=== PATIENT | female | born 1960 | race Caucasian/White ===

== ENCOUNTER → 2016-12-30 | Outpatient (CLI) | payer MEDICARE, OTHER ==
[2016-12-30 11:28] LABS: Basophils % (A) 0 %; CH 30.5; CHCM 32.3; Eosinophils # (A) 0.1 k/uL (0-0.7); Eosinophils % (A) 2 %; HCT 36.2 % (34.0-46.0); HDW 2.14; HGB 12.5 gm/dL (11.4-16.0); Luc # (Auto) 0.17; Luc % (Auto) 3; Lymphocytes # (A) 0.2 k/uL (1.0-4.8); Lymphocytes % (A) 4 %; MCH 32.7 pg (25.0-35.0); MCHC 34.6 g/dL (31.0-37.0); MCV 94.6 fL (80.0-100.0); Mean Platelet Volume 7.3; Monocytes # (A) 0.4 k/uL (0-1.0); Monocytes % (A) 8 %; Neutrophils # (A) 4.2 k/uL (1.3-7.7); Neutrophils % (A) 83 %; RBC 3.83 m/uL (3.80-5.40); RDW 12.9 % (11.5-15.5); WBC 5.1 k/uL (3.8-10.6); WBC (Perox) 5.47
[2016-12-30 12:13] LABS: Hemoglobin A1C 5.2 % (4.2-6.1)
[2016-12-30 12:23] LABS: ALT 34 U/L (9-52); AST 22 U/L (14-36); Alkaline Phosphatase 83 U/L (38-126); Anion Gap 10 mmol/L; Blood Urea Nitrogen 14 mg/dL (7-17); Calcium 9.1 mg/dL (8.4-10.2); Carbon Dioxide 28 mmol/L (22-30); Chloride 104 mmol/L (98-107); Glucose 86 mg/dL (74-99); Iron 99 ug/dL (37-170); Non-African American GFR(MDRD) >60 (>60 ml/min/1.73 sqM); Potassium 4.7 mmol/L (3.5-5.1); Sodium 142 mmol/L (137-145); Total Bilirubin 0.5 mg/dL (0.2-1.3); Total Protein 6.2 g/dL (6.3-8.2)
[2016-12-30 12:39] LABS: % Iron Saturation 29.4 % (20-50); Total Iron Binding Capacity 337 ug/dL (265-497)
[2016-12-30 13:14] LABS: Vitamin B12 611 pg/mL (239-931)
== END | disposition home or self-care (01) ==
LOC: LABWHC1 11:04
PROVIDERS: ATTEND Psychiatry & Neurology Neurology
DX: G35 Multiple sclerosis (principal); Z79.899 Other long term (current) drug therapy
CPT/HCPCS: 36415; 80053; 82306; 82607; 82728; 83036; 83540; 83550; 84466; 85025

== ENCOUNTER → 2017-06-24 | Outpatient (CLI) | payer MEDICARE, OTHER ==
--- NOTE | 2017-06-24 19:34 | MR ---
EXAMINATION TYPE: MR brain wo/w DATE OF EXAM: 06/24/2017 COMPARISON: 03/20/2016 HISTORY: MS Follow up, Previous On Pacs TECHNIQUE: Multiplanar, multisequence images of the brain and brainstem is performed without and with IV contras t, utilizing 6.5 mL intravenous Gadavist . FINDINGS: Diffusion weighted images demonstrate no evidence of a recent infarct or other diffusion ab normality. There is no extra-axial fluid collection or significant white matter signal abnormality. The ventricular system and cisternal spaces are normal in size and appearance. The brain volume is age appropriate. Midline structures demonstrate normal morphology. The craniocervical junction appears within normal limits. Post contrast images demonstrate no abnormal enhancement. The dural venous sinuses appear pa tent. Changes of mild chronic sinusitis. Abnormal signal within the basal ganglia is stable and most typica l remote lacunar infarction. No posterior the right cerebellum there is a 2 mm rounded area of enhanc ement not definitively seen on the previous exam WHITE MATTER: 1. Number of lesions-12 on the current exam and approximately 10 on the previous exam. 2. New lesions-there are approximately 2 new lesions both measuring less than 5 cm involving the left frontal and left parietal lobe. 3. Enhancing lesions: None 4. Callosal lesions-none 5. Lesions perpendicular to the ventricular system: None 6. Largest lesion: Stable 8 mm lesion hernandez radiata on the right unchanged from the prior exam. IMPRESSION: 1. Persistent nonspecific white matter lesions totaling a number of 12 on the current exam and 10 on the previous exam. Both new lesions measure less than 5 mm and appear within the left frontal and par ietal lobes respectively. 2. No enhancing lesions. All remaining lesions stable in size, location and morphology. 3. There is a new 2 mm area of rounded enhancement posterior to the right cerebellar hemisphere infer iorly. This is too small to characterize could represent a tiny meningioma. This could be followed on a 6-12 month basis given the diminutive size. EXAMINATION TYPE: MR cspine wo/w DATE OF EXAM: 06/24/2017 COMPARISON: 12/12/2013 HISTORY: MS Follow up, Previous On Pacs TECHNIQUE: T1 sagittal and coronal, T2 sagittal, and gradient echo axial views of the cervical spine are submitted. FINDINGS: The cranial cervical junction is preserved. There is no abnormal signal seen within the sp inal cord or paraspinal soft tissues. Less than 5 mm left thyroid nodule too small to characterize. At C2-3 there is no disc herniation, canal stenosis, or foraminal encroachment. At C3-4 there is no disc herniation or canal stenosis. Very minimal central disc bulging. Neural fora norm widely patent. At C4-5 there is annular tear and broad-based left paracentral disc bulge or small protrusion. Mild e ffacement of thecal sac. No canal stenosis or foraminal encroachment. Findings stable. At C5-6 there is moderate degenerative disc disease. There is a right paracentral and central broad-b ased disc herniation with moderate effacement of thecal sac and mild AP canal stenosis. Uncovertebral joint hypertrophy noted with minimal left-sided foraminal encroachment. Mild progression relative to the previous exam. At C6-7 there is degenerative disc disease but no canal stenosis or foraminal encroachment. At C7-T1 there is no evidence of disc herniation, canal stenosis, or foraminal encroachment. IMPRESSION: 1. No abnormal signal in the spinal cord. 2. Multilevel degenerative disc disease with severe changes at C5-C6. At C5-C6 there is mild progress ion of a right paracentral and central broad-based disc herniation with moderate effacement of thecal sac and mild AP canal stenosis. No spinal cord contact, however, there is mass effect upon the spina l cord secondary to thecal sac compression. 3. Annular tear and broad-based disc bulge or small protrusion C4-C5 greater paracentrally the left i s stable.
== END | disposition home or self-care (01) ==
LOC: RADMRIMAIN 16:46
PROVIDERS: ATTEND Psychiatry & Neurology Pain Medicine
DX: M48.02 Spinal stenosis, cervical region (principal); M50.222 Other cervical disc displacement at C5-C6 level; M50.322 Other cervical disc degeneration at C5-C6 level; G35 Multiple sclerosis; G93.89 Other specified disorders of brain; R90.82 White matter disease, unspecified
CPT/HCPCS: 70553; 72156; A9581

== ENCOUNTER → 2018-01-28 | Outpatient (CLI) | payer MEDICARE, OTHER ==
--- NOTE | 2018-01-28 10:53 | MR ---
EXAMINATION TYPE: MR brain wo/w con DATE OF EXAM: 01/28/2018 COMPARISON: 06/24/2017 HISTORY: Multiple sclerosis TECHNIQUE: Multiplanar, multisequence images of the brain and brainstem is performed without and with IV contras t, utilizing 6 mL intravenous Gadavist . FINDINGS: Diffusion weighted images demonstrate no evidence of a recent infarct or other diffusion ab normality. There is no extra-axial fluid collection or significant white matter signal abnormality. The ventricular system and cisternal spaces are normal in size and appearance. The brain volume is age appropriate. Midline structures demonstrate normal morphology. The craniocervical junction appears within normal limits. Post contrast images demonstrate no abnormal enhancement. The dural venous sinuses appear pa tent. The visualized sinuses are clear and the globes are intact. Stable tiny area of enhancement posterior to the right cerebellum could represent tiny meningioma wit h no significant mass effect. WHITE MATTER: 1. Number of lesions-12 on the current exam and approximately 10 on the previous exam. 2. New lesions-there are approximately 2 new lesions both measuring less than 5 cm involving the left frontal and left parietal lobe. 3. Enhancing lesions: None 4. Callosal lesions-none 5. Lesions perpendicular to the ventricular system: None 6. Largest lesion: Stable 8 mm lesion hernandez radiata on the right unchanged from the prior exam. IMPRESSION: 1. Stable nonspecific white matter changes. There is no interval change in size, morphology or number of lesions relative the previous exam. No enhancing lesions. Correlate clinically.
== END | disposition home or self-care (01) ==
LOC: RADMRIMAIN 09:13
PROVIDERS: ATTEND Psychiatry & Neurology Neurology
DX: G35 Multiple sclerosis (principal)
CPT/HCPCS: 70553

== ENCOUNTER → 2018-06-02 | Outpatient (CLI) | payer MEDICARE | END | disposition home or self-care (01) | LOC: LABWHC1 12:39 | PROVIDERS: ATTEND Psychiatry & Neurology Pain Medicine | DX: G35 Multiple sclerosis (principal); Z51.81 Encounter for therapeutic drug level monitoring | CPT/HCPCS: 36415; 82565; 84520 ==

== ENCOUNTER → 2018-11-05 | Outpatient (CLI) | payer MEDICARE ==
[2018-11-05 10:16] LABS: Basophils % (A) 1 %; Eosinophils # (A) 0.1 k/uL (0-0.7); Eosinophils % (A) 3 %; HCT 36.3 % (34.0-46.0); HGB 11.9 gm/dL (11.4-16.0); Lymphocytes # (A) 0.7 k/uL (1.0-4.8); Lymphocytes % (A) 14 %; MCHC 32.8 g/dL (31.0-37.0); MCV 91.3 fL (80.0-100.0); Mean Platelet Volume 8.6; Monocytes # (A) 0.3 k/uL (0-1.0); Monocytes % (A) 6 %; Neutrophils # (A) 3.5 k/uL (1.3-7.7); Neutrophils % (A) 75 %; Platelet Count 268 k/uL (150-450); RBC 3.98 m/uL (3.80-5.40); RDW 13.3 % (11.5-15.5); WBC 4.7 k/uL (3.8-10.6)
[2018-11-05 16:22] LABS: Albumin 4.3 g/dL (3.80-4.90); Albumin/Globulin Ratio 2.87 (1.60-3.17); Anion Gap 7.2 mmol/L (4.00-12.00); Calcium 8.9 mg/dL (8.7-10.3); Carbon Dioxide 26.8 mmol/L (21.6-31.8); Globulin 1.5 g/dL (1.6-3.3); Magnesium 1.9 mg/dL (1.5-2.4); Potassium 4.9 mmol/L (3.5-5.5); Total Bilirubin 0.2 mg/dL (0.3-1.2); Total Protein 5.8 g/dL (6.2-8.2)
== END ==
LOC: LABWHC1 08:39
PROVIDERS: ATTEND Psychiatry & Neurology Pain Medicine
DX: G35 Multiple sclerosis (principal); Z51.81 Encounter for therapeutic drug level monitoring
CPT/HCPCS: 36415; 80053; 82306; 83735; 85025

== ENCOUNTER → 2019-04-12 | Outpatient (CLI) | payer MEDICARE, OTHER ==
[2019-04-12 10:10] VITALS: BP 115/70; PULSE 80; RESP 16; TEMP 98.5; BMI 19.7
--- NOTE | 2019-04-12 11:16 | P.HPOB ---
History of Present Illness H&P Date: 04/12/19 Chief Complaint: The patient is here for her routine gynecologic exam and ma mmogram. This is a 58-year-old with an LMP of 1995. The patient is status post TAINA with LSO for benign reasons. The patient is without gynecologic complaints. Review of Systems The patient has lost 18 pounds over the last year. She states she has lost approximately 110 pounds since her bariatric surgery. She denies respiratory, cardiac, or G.I. problems. Past Medical History Past Medical History: GERD/Reflux, Neurologic Disorder Additional Past Medical History / Comment(s): Multiple Sclerosis, DIAGNOSED 07/2014. Osteopenia on Fosamax since approximately 2014. 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 BRCA testing was negative per the patient. History of Any Multi-Drug Resistant Organisms: None Reported Past Surgical History: Appendectomy, Bariatric Surgery, Bladder Surgery, Cholecystectomy, Hysterectomy Additional Past Surgical History / Comment(s): Duodenal Switch x 2; Bladder surgery x 3(for cystocele and incontinence). TAINA LSO in 1995. Colonoscopy 2013(next after 10yrs). Past Anesthesia/Blood Transfusion Reactions: No Reported Reaction, Motion Sickness Past Psychological History: Anxiety, Depression Smoking Status: Former smoker Past Alcohol Use History: None Reported Additional Past Alcohol Use History / Comment(s): Quit smoking in her 30s. Past Drug Use History: None Reported Additional History: She is but is infrequently sexually active with her ex-. She does not live with him. She frequently cares for her grandson whose mother . - Past Family History Daughter(s) Family Medical History: Cancer Additional Family Medical History / Comment(s): of spindle cell cancer at age 35. Mother Family Medical History: Cancer Additional Family Medical History / Comment(s): of widespread cancer at age 33. A great-grandmother had breast cancer. Medications and Allergies Home Medications Medication Instructions Recorded Confirmed Type Calcitriol [Rocaltrol] 0.5 mcg PO DAILY 09/01/14 01/05/15 History DULoxetine HCL [Cymbalta] 2 tab PO HS 09/01/14 04/12/19 History FLUoxetine HCL [PROzac] 20 mg PO DAILY 09/01/14 04/12/19 History Ibuprofen [Motrin] 600 mg PO Q6HR PRN #20 tab 01/05/15 04/12/19 Rx ALPRAZolam [Xanax] 1 cap PO DIRECTED PRN 04/12/19 04/12/19 History oxyCODONE HCL/ACETAMINOPHEN 1 tab PO Q6HR 04/12/19 04/12/19 History [Percocet 5-325 mg] Allergies Allergy/AdvReac Type Severity Reaction Status Date / Time meperidine HCl [From Demerol] AdvReac Nausea & Verified 04/12/19 10:12 Vomiting morphine AdvReac Nausea & Verified 04/12/19 10:12 Vomiting NARCOTICS AdvReac Nausea & Uncoded 04/12/19 10:12 Vomiting Exam Vital Signs Temp Pulse Resp BP Pulse Ox 04/12/19 09:57 98.5 F 80 16 115/70 100 Intake and Output 04/11/19 04/12/19 04/12/19 22:59 06:59 14:59 Other: Weight 56.245 kg Height 5 feet 6.5 inches, weight 124 pounds, BMI 19.7. This is a well-developed well-nourished thin white female who is alert and oriented times 3 in no acute distress. HEENT: Within normal limits. NECK: Supple without mass or thyromegaly. CHEST AND LUNGS: Clear to auscultation. HEART: Regular rate and rhythm. BREASTS: Are without mass or discharge. AXILLARY EXAM: Negative for adenopathy. BACK: Negative for CVA tenderness. ABDOMEN: Soft, nontender, without palpable masses. PELVIC EXAM: Normal external genitalia with mild to moderate atrophy. Cervix and vagina appear normal with mild to moderate atrophy. There is no unusual discharge. There is no evidence of prolapse. The uterus is midposition, nongravid size and nontender. There are no palpable adnexal masses or tenderness. RECTAL EXAM: Rectovaginal exam is negative for mass or tenderness and is negative for occult blood. EXTREMITIES: Nontender. IMPRESSION: 1. 58-year-old menopausal female with normal gynecologic exam. 2. History of osteopenia and has been on Fosamax for approximately 4 years through her PCP. PLAN: 1. Pap smears have been discontinued. 2. Self breast awareness was discussed with the patient. 3. Screening mammogram will be done today. 4. Osteoporosis prevention was discussed. I have stressed the importance of adequate calcium, vitamin D and regular exercise. Recommended amounts of calcium and vitamin D were also discussed. Bone density testing and treatment will be done through her PCP as she has done in the past. 5. She was advised to return in one year for her annual well woman exam.
--- NOTE | 2019-04-15 10:20 | MM ---
Reason for exam: screening (asymptomatic). Last mammogram was performed 1 year and 11 months ago. History: Patient is postmenopausal. Family history of breast cancer in paternal grandmother. Physical Findings: A clinical breast exam by your physician is recommended on an annual basis and results should be correlated with mammographic findings. MG Screening Mammo w CAD Bilateral CC and MLO view(s) were taken. Prior study comparison: May 06, 2017, bilateral MG 3d screening mammo w/cad. April 01, 2016, bilateral MG screening mammo w CAD. There are scattered fibroglandular densities. No significant changes when compared with prior studies. ASSESSMENT: Benign, BI-RAD 2 RECOMMENDATION: Routine screening mammogram of both breasts in 1 year.
== END | disposition home or self-care (01) ==
LOC: WWCWWP 09:53
PROVIDERS: ATTEND Obstetrics & Gynecology
DX: Z12.31 Encounter for screening mammogram for malignant neoplasm of breast (principal)
CPT/HCPCS: 77067

== ENCOUNTER → 2019-06-20 | Outpatient (CLI) | payer MEDICARE, OTHER ==
--- NOTE | 2019-06-20 22:36 | MR ---
EXAMINATION TYPE: MR lumbar spine wo con DATE OF EXAM: 06/20/2019 COMPARISON: Prior MRI lumbar spine March 20, 2016 HISTORY: MS, Low back pain TECHNIQUE: Multiplanar, multisequence imaging of the lumbar spine is performed without IV contrast. FINDINGS: Sagittal images of the lumbar spine show vertebral body heights and alignment to remain sat isfactory. There is multilevel disc desiccation with mild multilevel disc space narrowing with except ion of the L5-S1 level. The conus medullaris remains normal in position and signal. 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 The bone marrow signal inte nsity remains within normal limits. Axial images show the T12-L1 and L1-L2 levels to remain within normal limits. Axial images at L2-L3 level redemonstrate mild facet degenerative changes bilaterally stable from radha or. Axial images at L3-L4 level redemonstrate mild to moderate broad disc bulge mildly effacing the anter ior thecal sac. Bilateral neural foramina are patent. No significant change from prior. Axial images at L4-L5 level shows [id number] facet degenerative changes and ligament flavum hyp ertrophy effacing posterior lateral thecal sac. There is mild/moderate broad disc bulge effacing the anterior thecal sac. There is moderate left and mild to moderate right-sided neural foraminal narrowi ng redemonstrated. No significant change from prior. Axial images at L5-S1 level redemonstrated mild to moderate facet degenerative changes bilaterally. T here is broad-based posterior disc protrusion seen but spinal canal is preserved. Persistent mild to moderate left greater than right bilateral neural foraminal narrowing. Central small parapelvic cysts in both kidneys are thought present. Partial visualization of possibly exophytic posterior-lateral left renal lesion of T1 hypointensity and T2 hyperintensity may be origi nating from spleen on axial image 31 for reference. This may reflect debris-filled thin-walled cyst a s there are some curvilinear area of non-T2 hyperintensity noted. Continued enlargement is thought pr esent. IMPRESSION: Multilevel degenerative changes in lumbar spine as detailed above. Consider repeat imagin g to reevaluate possible left renal lesion non simple cyst.
--- NOTE | 2019-06-20 22:41 | MR ---
EXAMINATION TYPE: MR brain wo/w con DATE OF EXAM: 06/20/2019 COMPARISON: Prior MRI brain January 28, 2018 HISTORY: MS, Dizziness TECHNIQUE: Multiplanar, multisequence images of the brain and brainstem is performed without and with IV contras t, utilizing 5.5 mL intravenous Gadavist gadolinium contrast is administered intravenously. Demyelin ating disease protocol with additional Sagittal Flair sequence performed. FINDINGS: T2 Lesions Present : Yes Approximate Number of Lesions: Approximately 15 Locations Identified : Scattered Size of Reference Lesion(s): 1. Right frontal lesion level of basal ganglia measures 9 x 8 x 8 mm axial image 19 and sagittal imag e 25 stable from prior. Enhancing Lesion(s) Present: No T1 Hypointense Lesion(s) Present: Yes Change from Prior: Stable Diffusion weighted images demonstrate no evidence of a recent infarct or other diffusion abnormality. There is no worrisome extra-axial fluid collection. The ventricular system and cisternal spaces ar e normal in size and appearance. The brain volume is age appropriate. Midline structures demonstrate normal morphology. The craniocervical junction appears within normal limits. Post contrast images demonstrate no new areas of suspicious enhancement. Previous tiny focus right posterior cranial fossa not clearly seen on current study. The dural venous sinuses appear pat ent. New fluid signal suspected mucosal thickening nearly fills the entire left sphenoid sinus. Some artifact at level of right temporomandibular joint is thought present. IMPRESSION: Mild to borderline moderate nonspecific white matter changes without significant change f rom prior. No new enhancing lesions clearly seen.
== END | disposition home or self-care (01) ==
LOC: RADMRIMAIN 16:23
PROVIDERS: ATTEND Psychiatry & Neurology Pain Medicine
DX: G35 Multiple sclerosis (principal); M48.061 Spinal stenosis, lumbar region without neurogenic claudication; M47.816 Spondylosis without myelopathy or radiculopathy, lumbar region; M51.86 Other intervertebral disc disorders, lumbar region
CPT/HCPCS: 70553; 72148; A9585

== ENCOUNTER → 2020-04-18 | Outpatient (CLI) | payer MEDICARE ==
[2020-04-18 08:16] VITALS: BP 108/68; PULSE 70; RESP 18; TEMP 98.5
--- NOTE | 2020-04-18 08:47 | P.HPOB ---
History of Present Illness H&P Date: 04/18/20 Chief Complaint: The patient is here for her routine gynecologic exam and ma mmogram. This is a 59-year-old with an LMP of 1995. She is status post TAINA with LSO for benign reasons. The patient is without gynecologic complaints. She states she discontinued the Fosamax that was prescribed by Dr. Bhatt after using it for 4 years for osteopenia.. Review of Systems The patient has lost 10 pounds over the last year. She attributes this weight loss to significant stress regarding a court case involving her visitation with her grandson. She denies respiratory, cardiac, or G.I. problems. Past Medical History Past Medical History: GERD/Reflux, Neurologic Disorder Additional Past Medical History / Comment(s): Multiple Sclerosis, DIAGNOSED 07/2014. Osteopenia on Fosamax [id number]. 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 BRCA testing was negative per the patient. History of Any Multi-Drug Resistant Organisms: None Reported Past Surgical History: Appendectomy, Bariatric Surgery, Bladder Surgery, Cholecystectomy, Hysterectomy Additional Past Surgical History / Comment(s): Duodenal Switch x 2; Bladder surgery x 3(for cystocele and incontinence). TAINA LSO in 1995. Colonoscopy 2013(next after 10yrs). Past Anesthesia/Blood Transfusion Reactions: No Reported Reaction, Motion Sickness Past Psychological History: Anxiety, Depression Smoking Status: Former smoker Past Alcohol Use History: None Reported Additional Past Alcohol Use History / Comment(s): Quit smoking in her 30s. Past Drug Use History: None Reported Additional History: She is but is sexually active with her ex-. She is does not live with him. She is under stress related to a court dispute with her grandson's father regarding visitation. - Past Family History Daughter(s) Family Medical History: Cancer Additional Family Medical History / Comment(s): of spindle cell cancer at age 35. Mother Family Medical History: Cancer Additional Family Medical History / Comment(s): of widespread cancer at age 33. A great-grandmother had breast cancer. Medications and Allergies Home Medications Medication Instructions Recorded Confirmed Type Calcitriol [Rocaltrol] 0.5 mcg PO DAILY 09/01/14 04/18/20 History DULoxetine HCL [Cymbalta] 2 tab PO HS 09/01/14 04/18/20 History FLUoxetine HCL [PROzac] 20 mg PO DAILY 09/01/14 04/18/20 History Ibuprofen [Motrin] 600 mg PO Q6HR PRN #20 tab 01/05/15 04/18/20 Rx ALPRAZolam [Xanax] 1 cap PO DIRECTED PRN 04/12/19 04/18/20 History oxyCODONE HCL/ACETAMINOPHEN 1 tab PO Q6HR 04/12/19 04/18/20 History [Percocet 5-325 mg] Cholecalciferol [Vitamin D3 (25 5,000 unit PO DAILY 04/18/20 04/18/20 History Mcg = 1000 Iu)] Ocrevus 1 unit IV DAILY 04/18/20 04/18/20 History modafiniL [Provigil] 100 mg PO QAM 04/18/20 04/18/20 History Allergies Allergy/AdvReac Type Severity Reaction Status Date / Time meperidine HCl [From Demerol] AdvReac Nausea & Verified 04/18/20 08:15 Vomiting morphine AdvReac Nausea & Verified 04/18/20 08:15 Vomiting NARCOTICS AdvReac Nausea & Uncoded 04/18/20 08:15 Vomiting Exam Vital Signs Temp Pulse Resp BP Pulse Ox 04/18/20 08:10 98.5 F 70 18 108/68 98 Intake and Output 04/17/20 04/18/20 04/18/20 22:59 06:59 14:59 Other: Weight 51.71 kg Height 5 feet 6-1/2 inches, weight 114 pounds, BMI 18.1. This is a well-developed thin white female who is alert and oriented times 3 in no acute distress. HEENT: Within normal limits. NECK: Supple without mass or thyromegaly. CHEST AND LUNGS: Clear to auscultation. HEART: Regular rate and rhythm. BREASTS: Are without mass or discharge. AXILLARY EXAM: Negative for adenopathy. BACK: Negative for CVA tenderness. ABDOMEN: Soft, nontender, without palpable masses. PELVIC EXAM: External genitalia appears normal with mild atrophy. Vagina a ppears normal is mild to moderate atrophy. There is no evidence of prolapse. Bimanual examination is negative for mass or tenderness. RECTAL EXAM: Rectovaginal exam is negative for mass or tenderness and is negative for occult blood. EXTREMITIES: Nontender. IMPRESSION: 1. 59-year-old menopausal female status post TAINA and LSO for benign reasons with normal gynecologic exam. 2. History of osteopenia status post 4 years use of Fosamax. PLAN: 1. Pap smears have been discontinued. 2. Self breast awareness was discussed with the patient. 3. Screening mammogram will be done today. 4. Osteoporosis prevention was discussed. I have stressed the importance of adequate calcium, vitamin D and regular exercise. Recommended amounts of calcium and vitamin D were also discussed. Last bone density test was about 4 or 5 years ago. I recommended repeating bone density testing. The order slip was given to the patient for this. 5. I have stressed the importance of good nutrition as well as regular activity in the importance of taking care of herself during this is very stressful time for her. 6. She was advised to return in one year for her annual well woman exam.
--- NOTE | 2020-04-20 13:52 | MM ---
Reason for exam: screening (asymptomatic). Last mammogram was performed 1 year ago. History: Patient is postmenopausal. Family history of breast cancer in paternal grandmother. Physical Findings: A clinical breast exam by your physician is recommended on an annual basis and results should be correlated with mammographic findings. MG Screening Mammo w CAD Bilateral CC and MLO view(s) were taken. Prior study comparison: April 12, 2019, bilateral MG screening mammo w CAD. May 06, 2017, bilateral MG 3d screening mammo w/cad. The breast tissue is heterogeneously dense. This may lower the sensitivity of mammography. No significant changes when compared with prior studies. ASSESSMENT: Benign, BI-RAD 2 RECOMMENDATION: Routine screening mammogram of both breasts in 1 year.
== END | disposition home or self-care (01) ==
LOC: WWCWWP 08:02
PROVIDERS: ATTEND Obstetrics & Gynecology
DX: Z12.31 Encounter for screening mammogram for malignant neoplasm of breast (principal)
CPT/HCPCS: 77067

== ENCOUNTER → 2020-08-07 | Outpatient (CLI) | payer MEDICARE ==
[2020-08-07 19:37] LABS: Basophils # (A) 0.08 X 10*3/uL (0.00-0.10); Basophils % (A) 1.8 %; Eosinophils # (A) 0.07 X 10*3/uL (0.04-0.35); Eosinophils % (A) 1.6 %; HCT 31.6 % (37.2-46.3); HGB 9.4 g/dL (12.0-15.0); Lymphocytes # (A) 0.75 X 10*3/uL (0.90-5.00); MCH 25.7 pg (27.0-32.0); MCHC 29.7 g/dL (32.0-37.0); MCV 86.3 fL (80.0-97.0); Mean Platelet Volume 11.3 fL (9.5-12.2); Monocytes # (A) 0.53 X 10*3/uL (0.20-1.00); Neutrophils # (A) 2.96 X 10*3/uL (1.80-7.70); Neutrophils % (A) 67.4 %; Platelet Count 329 X 10*3/uL (140-440); RBC 3.66 X 10*6/uL (4.10-5.20); RDW 15.6 % (11.5-14.5)
[2020-08-07 20:12] LABS: DHEA Sulfate 18.7 ug/dL (26.0-430.0)
[2020-08-07 21:15] LABS: Hepatitis B Core IgM Non-Reactive (Non-Reactive); Hepatitis B Surface AB- Quant 3.5 mIU/mL; Hepatitis B Surface Antibody Non-Reactive (Non-Reactive); Hepatitis B Surface Antigen Non-Reactive (Non-Reactive)
[2020-08-07 22:09] LABS: Hemoglobin A1C 5.7 % (4.0-6.0)
[2020-08-08 00:43] LABS: ALT 16 U/L (8-44); AST 18 U/L (13-35); African American GFR (CKD) 94.2 (60.0-200.0); Albumin/Globulin Ratio 3.13 (1.60-3.17); Alkaline Phosphatase 134 U/L (41-126); BUN/Creat Ratio 21.25 Ratio (12.00-20.00); C Reactive Protein <0.4 mg/dL (0.0-0.8); Calcium 9.1 mg/dL (8.7-10.3); Chloride 105 mmol/L (96-109); Globulin 1.5 g/dL (1.6-3.3); Glucose 83 mg/dL (70-110); Non-African American GFR(CKD) 81.3 (60.0-200.0); Potassium 4.2 mmol/L (3.5-5.5); Sodium 141 mmol/L (135-145); Total Bilirubin 0.2 mg/dL (0.3-1.2); Total Protein 6.2 g/dL (6.2-8.2)
[2020-08-08 00:44] LABS: Prolactin 4.2 ng/mL (2.8-29.2)
[2020-08-08 01:27] LABS: Folate, Serum >24.0 ng/mL
[2020-08-08 03:54] LABS: Estradiol 15.9 pg/mL; Testosterone <7.00 ng/dL (7.00-45.62)
[2020-08-08 06:05] LABS: Varicella IgM Antibody 0.08 INDEX (<=0.90)
== END | disposition home or self-care (01) ==
LOC: LABWHC1 12:44
PROVIDERS: ATTEND Psychiatry & Neurology Pain Medicine
DX: Z51.81 Encounter for therapeutic drug level monitoring (principal); R53.83 Other fatigue; G35 Multiple sclerosis; Z79.899 Other long term (current) drug therapy
CPT/HCPCS: 36415; 80053; 82306; 82607; 82627; 82670; 82672; 82746; 83003; 83036; 84146; 84207; 84305; 84403; 84425; 84439; 84443; 84481; 84591; 85025; 86140; 86704; 86705; 86706; 86787; 87340

== ENCOUNTER → 2020-08-27 | Outpatient (CLI) | payer MEDICARE, OTHER ==
--- NOTE | 2020-08-28 19:59 | MR ---
EXAMINATION TYPE: MR brain/cspine wo/w DATE OF EXAM: 08/27/2020 COMPARISON: MR brain 06/20/2019, MR C-spine 06/24/2017 HISTORY: MS follow up. Headaches. Weakness, numbness, and pain on left side down to fingers TECHNIQUE: Multiplanar, multisequence images of the brain and brainstem is performed without and with IV contras t, utilizing 5.5 mL intravenous Gadavist . FINDINGS: Diffusion weighted images demonstrate no evidence of a recent infarct or other diffusion ab normality. There is no extra-axial fluid collection. The pericallosal, periventricular hyperintensi ties are similar in size and slightly increased in number, however, axial image #17 in the anterior l imb of the internal capsule shows a more conspicuous lesion measuring now approximately 11 mm in AP d imension by 5 mm in transverse dimension by 11 mm in cephalad to caudal dimension whereas on prior ex am it measured approximately 10 mm x 4 mm x 9 mm. A new periventricular white matter lesion in the le ft frontal lobe on axial image 19 measures only 2 mm. In the internal capsule on the right on axial i mage 17 there is been increase in size and the lesion now measures approximately 5.5 mm and was punct ate on prior. The ventricular system and cisternal spaces are normal in size and appearance. The bra in volume is age appropriate. Midline structures demonstrate normal morphology. The craniocervical junction appears within normal limits. Post contrast images demonstrate no abnormal enhancement. The dural venous sinuses appear pa tent. The visualized sinuses are remarkable for inflammatory change in the sphenoid sinus, maxillary sinus and the globes are intact. IMPRESSION: Slight interval increase in size of one lesion and increase number of lesions as compared to prior. Sinus disease. Cervical spine MRI: There is degenerative disc change present. At C5-6 there is posterior extension e ndplate disc complex, posterior disc herniation causing anterior mass effect on the thecal sac. Uncov ertebral joint hypertrophy causes some foraminal encroachment on the left. Only mild spinal stenosis. C4-5 also shows posterior extension endplate disc complex causing mild anterior mass effect on the th ecal sac, there is lateral extension, uncovertebral joint hypertrophy causing some left-sided foramin al encroachment. Cervical cord signal is normal. No abnormal enhancement following contrast administration. IMPRESSION: Degenerative disc disease and facet arthropathy.
== END | disposition home or self-care (01) ==
LOC: RADMRIMAIN 16:04
PROVIDERS: ATTEND Psychiatry & Neurology Neurology
DX: M50.30 Other cervical disc degeneration, unspecified cervical region (principal); M47.812 Spondylosis without myelopathy or radiculopathy, cervical region; G93.9 Disorder of brain, unspecified; G35 Multiple sclerosis
CPT/HCPCS: 70553; 72156; A9585

== ENCOUNTER → 2020-09-27 | Outpatient (CLI) | payer MEDICARE, OTHER ==
[2020-09-27 18:35] LABS: HCT 36.3 % (37.2-46.3); HGB 11.1 g/dL (12.0-15.0); MCH 27.5 pg (27.0-32.0); MCHC 30.6 g/dL (32.0-37.0); MCV 90.1 fL (80.0-97.0); Mean Platelet Volume 11.4 fL (9.5-12.2); Platelet Count 212 X 10*3/uL (140-440); RBC 4.03 X 10*6/uL (4.10-5.20); RDW 19.9 % (11.5-14.5); Reticulocyte % 0.41 % (0.10-1.80); WBC 2.21 X 10*3/uL (4.50-10.00)
[2020-09-28 05:37] LABS: % Iron Saturation 5.78 (12.00-45.00); C Reactive Protein 0.4 mg/dL (0.0-0.8); Ferritin 23.3 ng/mL (10.0-291.0); Iron 19 ug/dL (50-170); Total Iron Binding Capacity 329 ug/dL (228-460)
[2020-09-28 05:38] LABS: Folate, Serum 23.4 ng/mL; Prolactin 10.3 ng/mL (2.8-29.2)
[2020-09-28 05:39] LABS: Estradiol <11.8 pg/mL; Testosterone <7.00 ng/dL (7.00-45.62)
[2020-09-28 13:36] LABS: Growth Hormone, Human 1.6 ng/mL (<10)
== END | disposition home or self-care (01) ==
LOC: LABWHC1 08:38
PROVIDERS: ATTEND Psychiatry & Neurology Pain Medicine
DX: D55.2 Anemia due to disorders of glycolytic enzymes (principal); D72.820 Lymphocytosis (symptomatic)
CPT/HCPCS: 36415; 82607; 82668; 82670; 82728; 82746; 83003; 83540; 83550; 84146; 84207; 84305; 84403; 84425; 84439; 84443; 84466; 84481; 84591; 85027; 85045; 86140

== ENCOUNTER → 2020-12-25 | Outpatient (CLI) | payer MEDICARE | END | disposition home or self-care (01) | LOC: LABWHC1 13:40 | PROVIDERS: ATTEND Psychiatry & Neurology Pain Medicine | DX: Z01.810 Encounter for preprocedural cardiovascular examination (principal) | CPT/HCPCS: 36415; 93005 ==

== ENCOUNTER 2021-04-11 11:13 | Emergency (ER) | payer MEDICARE, OTHER ==
[2021-04-11] MEDS ORDERED: DIPH,PERTUS(ACELL)TETVAC-LF 0.5 ML VIAL IM ONE (11:28)
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
[2021-04-11] MEDS ORDERED: ONDANSETRON 4 MG/2 ML VIAL IVP STA (11:44)
[2021-04-11 11:45] LABS: Basophils % (A) 0 %; Eosinophils # (A) 0.1 k/uL (0-0.7); Eosinophils % (A) 1 %; HCT 37.7 % (34.0-46.0); HGB 12.6 gm/dL (11.4-16.0); Lymphocytes # (A) 0.8 k/uL (1.0-4.8); Lymphocytes % (A) 9 %; MCH 33.8 pg (25.0-35.0); MCHC 33.6 g/dL (31.0-37.0); MCV 100.8 fL (80.0-100.0); Mean Platelet Volume 7.9; Monocytes # (A) 0.4 k/uL (0-1.0); Monocytes % (A) 5 %; Neutrophils # (A) 7.4 k/uL (1.3-7.7); Neutrophils % (A) 84 %; Platelet Count 319 k/uL (150-450); RBC 3.74 m/uL (3.80-5.40); RDW 12.5 % (11.5-15.5); WBC 8.8 k/uL (3.8-10.6)
--- NOTE | 2021-04-11 11:46 | XR ---
EXAMINATION TYPE: XR chest 1V portable DATE OF EXAM: 04/11/2021 COMPARISON: NONE HISTORY: Pain TECHNIQUE: Single frontal view of the chest is obtained. FINDINGS: There is no focal air space opacity, pleural effusion, or pneumothorax seen. The cardiac silhouette size is within normal limits. The osseous structures are intact. Diffuse osteopenia. Hyp erinflation of the lungs. Surgical clips in the abdomen. Slight curvature of the spine correlate for scoliosis. IMPRESSION: No acute process.
--- NOTE | 2021-04-11 11:48 | XR ---
EXAMINATION TYPE: XR pelvis AP view DATE OF EXAM: 04/11/2021 COMPARISON: NONE HISTORY: Pain The osseous structures are intact and the joint spaces are preserved. No acute fracture is seen. Vi sualized bowel gas pattern is nonspecific. Postsurgical change in the pelvis. Arthropathy of the hip s diffuse osteopenia. Sclerotic density overlying the left femur may represent bone island or be supe rficial. IMPRESSION: 1. No acute fracture.
[2021-04-11 11:52] LABS: ALT 24 U/L (4-34); AST 36 U/L (14-36); African American GFR (CKD) >90 (>60 ml/min/1.73 sqM); Albumin 3.9 g/dL (3.5-5.0); Alcohol <10 mg/dL; Alkaline Phosphatase 81 U/L (38-126); Anion Gap 7 mmol/L; Blood Urea Nitrogen 17 mg/dL (7-17); Calcium 9.1 mg/dL (8.4-10.2); Carbon Dioxide 25 mmol/L (22-30); Chloride 105 mmol/L (98-107); Glucose 119 mg/dL (74-99); Non-African American GFR(CKD) >90 (>60 ml/min/1.73 sqM); Potassium 3.9 mmol/L (3.5-5.1); Sodium 137 mmol/L (137-145); Total Bilirubin 0.4 mg/dL (0.2-1.3); Total Protein 6.1 g/dL (6.3-8.2)
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
[2021-04-11] MEDS ORDERED: KETOROLAC 15 MG/ML 1 ML VIAL IVP STA (12:52)
[2021-04-11] MEDS ORDERED: LIDOCAINE 1% INJ 10MG/ML (20 ML MDV) SQ ONE (13:20)
[2021-04-11] MEDS ORDERED: fentaNYL (PF) 50 MCG/ML 2 ML AMP IVP PRN (14:13)
--- NOTE | 2021-04-11 14:24 | XR ---
EXAMINATION TYPE: XR tibia fibula RT DATE OF EXAM: 04/11/2021 COMPARISON: NONE HISTORY: Pain TECHNIQUE: Two views are submitted. FINDINGS: The osseous structures are intact. The joint spaces are preserved. Diffuse osteopenia. IMPRESSION: 1. No acute osseous abnormality.
--- NOTE | 2021-04-11 14:25 | XR ---
EXAMINATION TYPE: XR shoulder complete RT DATE OF EXAM: 04/11/2021 COMPARISON: NONE HISTORY: Pain TECHNIQUE: Three views are submitted. FINDINGS: The osseous structures are intact. There is no acute fracture or dislocation. Arthropathy of the AC joint. Vague nodular density on the frontal view may be superficial patient be artifactual. IMPRESSION: 1. AC joint arthropathy
--- NOTE | 2021-04-11 14:26 | XR ---
EXAMINATION TYPE: XR ankle complete LT DATE OF EXAM: 04/11/2021 COMPARISON: NONE HISTORY: Pain FINDINGS: Three views of the ankle demonstrate the ankle mortise to be intact and symmetric. The joint spaces are preserved. The osseous structures are intact. Diffuse osteopenia with calcaneal spur. IMPRESSION: 1. No definite acute fracture or dislocation, if symptoms persist follow-up study in 7 to 10 days wou ld be suggested.
--- NOTE | 2021-04-11 14:27 | XR ---
EXAMINATION TYPE: XR elbow complete RT DATE OF EXAM: 04/11/2021 COMPARISON: NONE HISTORY: Pain FINDINGS: Three views of the elbow demonstrate no pathologic joint effusion. The osseous structures are intact . There is no acute fracture or dislocation. IMPRESSION: 1. No acute fracture or dislocation. If symptoms persist follow-up study in 7 to 10 days could be ob tained.
[2021-04-11] MEDS ORDERED: HYDROmorphone 0.5 MG/0.5 ML SYRINGE IVP STA (14:29)
--- NOTE | 2021-04-11 14:29 | XR ---
EXAMINATION TYPE: XR foot complete RT DATE OF EXAM: 04/11/2021 COMPARISON: NONE HISTORY: Pain TECHNIQUE: Three views are submitted. FINDINGS: The osseous structures are intact. There is no acute fracture or dislocation. Hammertoe deformitie s are noted. There is diffuse osteopenia. Calcaneal spur is noted.. IMPRESSION: 1. No acute fracture or dislocation. If symptoms persist, follow-up exam in 7 to 10 days could be ob tained.
[2021-04-11 16:52] VITALS: BP 112/68; PULSE 70; RESP 18; TEMP 98.4
== END 2021-04-11 17:01 | disposition home or self-care (01) ==
LOC: EC 11:13
DX: S01.81XA Laceration without foreign body of other part of head, initial encounter (principal); S50.811A Abrasion of right forearm, initial encounter; S50.311A Abrasion of right elbow, initial encounter; S90.511A Abrasion, right ankle, initial encounter; Z87.891 Personal history of nicotine dependence; Z88.8 Allergy status to other drugs, medicaments and biological substances; Z23 Encounter for immunization; Z88.5 Allergy status to narcotic agent; V86.05XA Driver of 3- or 4- wheeled all-terrain vehicle (ATV) injured in traffic accident, initial encounter
CPT/HCPCS: 93005; 86900; 86901; 80053; 83605; 84484; 85025; 86850; 72170; 73030; 73080; 73590; 73610; 73630; 71045; 72125; 70450; 71260; 74177; 90715; 99285; 12015; 90471; 96374; 96375; G0480; J2405; J2001; J1885; J1170; Q9967; 80320

== ENCOUNTER 2021-04-11 21:55 | Emergency (ER) | payer MEDICARE, OTHER ==
[2021-04-11] MEDS ORDERED: Acetaminophen-Codeine 300-30mg TAB PO STA (22:19)
[2021-04-11] MEDS ORDERED: ONDANSETRON ODT 4 MG TAB PO STA (22:19)
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
[2021-04-11 22:30] VITALS: RESP 18
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
[2021-04-11] MEDS ORDERED: ONDANSETRON 4 MG ODT STARTER PACK 2 TAB BTL PO STA (23:19)
[2021-04-11] MEDS ORDERED: ACET/COD 300 MG/30 MG STARTER PACK 6 TAB BTL PO STA (23:19)
[2021-04-11] MEDS ORDERED: traMADol 50 MG STARTER PACK 3 TAB BTL PO STA (23:19)
[2021-04-12] MEDS ORDERED: ONDANSETRON 4 MG/2 ML VIAL IVP STA (00:12)
[2021-04-12 00:14] VITALS: BP 106/56; PULSE 68; TEMP 98.2
[2021-04-12] MEDS ORDERED: ONDANSETRON 4 MG TAB PO STA (00:18)
== END 2021-04-12 00:21 | disposition home or self-care (01) ==
LOC: EC 21:55
DX: S06.0X0A Concussion without loss of consciousness, initial encounter (principal); S01.01XA Laceration without foreign body of scalp, initial encounter; R40.2362 Coma scale, best motor response, obeys commands, at arrival to emergency department; R40.2142 Coma scale, eyes open, spontaneous, at arrival to emergency department; R40.2252 Coma scale, best verbal response, oriented, at arrival to emergency department; Z76.0 Encounter for issue of repeat prescription; Z88.5 Allergy status to narcotic agent; Z87.891 Personal history of nicotine dependence; V86.59XA Driver of other special all-terrain or other off-road motor vehicle injured in nontraffic accident, initial encounter
CPT/HCPCS: 70450; 72125; 99284

== ENCOUNTER → 2021-07-23 | Outpatient (CLI) | payer MEDICARE, OTHER ==
[2021-07-23 08:22] VITALS: BP 112/67; PULSE 90; RESP 18; TEMP 99
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
== END ==
LOC: WWCWWP 07:59
PROVIDERS: ATTEND Obstetrics & Gynecology
DX: Z53.9 Procedure and treatment not carried out, unspecified reason (principal)

== ENCOUNTER 2021-08-12 14:10 | Emergency (ER) | payer MEDICARE, OTHER ==
[2021-08-12 14:24] VITALS: RESP 18
[2021-08-12] MEDS ORDERED: ONDANSETRON 4 MG/2 ML VIAL IVP STA (14:38)
[2021-08-12] MEDS ORDERED: HYDROmorphone 1 MG/ML 1 ML SYRINGE IVP STA ×2 (14:38→16:00)
--- NOTE | 2021-08-12 14:40 | ED ---
General Adult HPI - General Chief complaint: Fall Stated complaint: Left Hip Pain, Left Elbow Pain Time Seen by Provider: 08/12/21 14:15 Source: patient, EMS, RN notes reviewed Mode of arrival: ambulatory Limitations: physical limitation - History of Present Illness Initial comments: Patient is a pleasant 60-year-old female presenting to the emergency department following a fall. Patient slipped and fell on ice prior to arrival. Patient complains of discomfort left pelvis/hip. Patient also hit her left elbow however that discomfort is mild. No head injury or loss of consciousness. No neck or back pain. No chest pain or dyspnea. No abdominal pain. No history of chronic injury to this area previously. Patient did receive pain medication by EMS. - Related Data Home Medications Medication Instructions Recorded Confirmed calcitrioL [Rocaltrol] 0.5 mcg PO DAILY 09/01/14 07/23/21 ALPRAZolam [Xanax] 0.5 mg PO DAILY PRN 04/12/19 07/23/21 oxyCODONE HCL/ACETAMINOPHEN 1 tab PO TID PRN 04/12/19 07/23/21 [Percocet 5-325 mg] Ocrevus 1 dose IV Q150D 04/18/20 07/23/21 DULoxetine HCL [Cymbalta] 60 mg PO BID 01/16/21 07/23/21 Acyclovir 800 mg PO DAILY 04/11/21 07/23/21 Ammonium Lactate Cream [Lac-Hydrin 1 applic TOPICAL BID PRN 04/11/21 07/23/21 12% Cream] Baclofen [Lioresal] 10 mg PO BID 04/11/21 07/23/21 Cetirizine HCl 10 mg PO DAILY 04/11/21 07/23/21 Cholecalciferol (Vitamin D3) 125 mcg PO DAILY 04/11/21 07/23/21 [Vitamin D3 (125 MCG = 5,000 IU)] Cyanocobalamin (Vitamin B-12) 1,000 mcg PO DAILY 04/11/21 07/23/21 [Vitamin B-12] Dalfampridine [Dalfampridine ER] 10 mg PO BID 04/11/21 07/23/21 Ergocalciferol [Vitamin D2 (1250 1,250 mcg PO MERCADO 04/11/21 07/23/21 Mcg = 90940 Iu)] FLUoxetine HCL [PROzac] 40 mg PO DAILY 04/11/21 07/23/21 Ferrous Sulfate [Feosol] 325 mg PO DAILY 04/11/21 07/23/21 modafiniL [Provigil] 200 mg PO DAILY 04/11/21 07/23/21 ondansetron HCL [Zofran] 8 mg PO TID 04/11/21 07/23/21 Previous Rx's Medication Instructions Recorded Ibuprofen 800 mg PO Q6HR PRN #20 tablet 04/11/21 Ibuprofen [Motrin] 600 mg PO Q6HR PRN #20 tab 08/12/21 Allergies Allergy/AdvReac Type Severity Reaction Status Date / Time meperidine HCl [From Demerol] AdvReac Nausea & Verified 08/12/21 14:23 Vomiting morphine AdvReac Nausea & Verified 08/12/21 14:23 Vomiting NARCOTICS AdvReac Nausea & Uncoded 08/12/21 14:23 Vomiting Review of Systems ROS Statement: Those systems with pertinent positive or pertinent negative responses have been documented in the HPI. ROS Other: All systems not noted in ROS Statement are negative. Constitutional: Denies: fever Eyes: Denies: eye pain ENT: Denies: ear pain Respiratory: Denies: cough Cardiovascular: Denies: chest pain Endocrine: Denies: fatigue Gastrointestinal: Denies: abdominal pain Genitourinary: Denies: dysuria Musculoskeletal: Reports: as per HPI. Denies: back pain Skin: Denies: rash Neurological: Denies: weakness Past Medical History Past Medical History: GERD/Reflux, Neurologic Disorder Additional Past Medical History / Comment(s): Multiple Sclerosis, DIAGNOSED 07/2014. Osteopenia on Fosamax [phone]. 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 BRCA testing was negative per the patient. History of Any Multi-Drug Resistant Organisms: None Reported Past Surgical History: Appendectomy, Bariatric Surgery, Bladder Surgery, Cholecystectomy, Hysterectomy Additional Past Surgical History / Comment(s): Duodenal Switch x 2; Bladder surgery x 3(for cystocele and incontinence). TAINA LSO in 1995. Colonoscopy 2013 (next after 10yrs). Past Anesthesia/Blood Transfusion Reactions: No Reported Reaction, Motion Sickness Past Psychological History: Anxiety, Depression Smoking Status: Former smoker Past Alcohol Use History: Occasional Past Drug Use History: None Reported - Past Family History Daughter(s) Family Medical History: Cancer Additional Family Medical History / Comment(s): of spindle cell cancer at age 35. Mother Family Medical History: Cancer Additional Family Medical History / Comment(s): of widespread cancer at age 33. A great-grandmother had breast cancer. General Exam Limitations: physical limitation General appearance: alert, in no apparent distress Head exam: Present: atraumatic, normocephalic Eye exam: Present: normal appearance, PERRL Neck exam: Present: normal inspection. Absent: tenderness Respiratory exam: Present: normal lung sounds bilaterally Cardiovascular Exam: Present: regular rate, normal rhythm Expanded Peripheral pulses: 2+: Posterior Tibialis (R), Posterior Tibialis (L), Dorsalis Pedis (R), Dorsalis Pedis (L) GI/Abdominal exam: Present: soft. Absent: tenderness Extremities exam: Present: tenderness (Left hip region, closer to the superior pubic rami. Patient also has mild discomfort left proximal ulna), other (Pain with range of motion left hip limited exam. Distally the extremity is neurovascular intact.) Neurological exam: Present: alert, oriented X3. Absent: motor sensory deficit Psychiatric exam: Present: normal affect, normal mood Skin exam: Present: normal color Course Vital Signs 08/12/21 14:18 Temperature 97.6 F Pulse Rate 68 Respiratory 18 Rate Blood Pressure 110/67 O2 Sat by Pulse 100 Oximetry - Reevaluation(s) Reevaluation #1: 08/12/21 15:36 Patient reevaluated and still uncomfortable. Patient is concern for fracture despite negative x-rays. Computed tomography scan will be ordered. Medical Decision Making - Medical Decision Making Patient reevaluated and updated. - Radiology Data Radiology results: report reviewed (Computed tomography scan negative for fracture.), image reviewed (Left elbow, left hip and pelvis x-ray revealed no sign of fracture) Disposition Clinical Impression: Fall, Contusion, hip Disposition: HOME SELF-CARE Condition: Stable Instructions (If sedation given, give patient instructions): Fall Prevention (ED), Hip Contusion (ED) Additional Instructions: Please follow-up with primary care physician in the next couple days for recheck. Symptoms continue follow-up also with orthopedics, number provided. [id number] Tylenol or Motrin as needed. Ice to affected area. Return for unable to walk, increase pain, change or worsening symptoms or other concerns. Prescriptions: Ibuprofen [Motrin] 600 mg PO Q6HR PRN #20 tab PRN Reason: Pain Is patient prescribed a controlled substance at d/c from ED?: No Referrals: Jay Bhatt MD [Primary Care Provider] - 1-2 days Time of Disposition: 16:09
--- NOTE | 2021-08-12 15:12 | XR ---
EXAMINATION TYPE: XR elbow complete LT DATE OF EXAM: 08/12/2021 CLINICAL HISTORY: pain TECHNIQUE: Frontal, lateral and oblique images of the left elbow are obtained. COMPARISON: None. FINDINGS: There is no acute fracture/dislocation evident of the elbow. No abnormal fat pad signs ar e seen. The overlying soft tissue appears unremarkable. IMPRESSION: There is no acute fracture or dislocation of the elbow. ICD 10 NO FRACTURE, INITIAL EVALUATION
--- NOTE | 2021-08-12 15:29 | XR ---
EXAMINATION TYPE: AP view pelvis and 2 views left hip DATE OF EXAM: 08/12/2021 COMPARISON: None HISTORY: 60-year-old female with fall and pain FINDINGS: Prominent bowel content overlies the iliac bones and sacrum. Some surgical clips in both sides of the pelvis. Mild degenerative spurring with mild superolateral joint space narrowing at both hips. No ac [place] fracture, subluxation, or dislocation seen. Osteopenia. IMPRESSION: 1. Osteopenia. No displaced fracture seen. 2. Mild degenerative change at both hips. 3. Gassy bowel. Surgical material in the pelvis.
--- NOTE | 2021-08-12 16:01 | CT ---
EXAMINATION TYPE: CT hip LT wo con DATE OF EXAM: 08/12/2021 COMPARISON: None HISTORY: Fall, left hip pain. CT DLP: 335.5 mGycm Automated exposure control for dose reduction was used. Unenhanced CT of the left hip was performed i n the axial coronal and sagittal planes. Bone and soft tissue window settings are reviewed. FINDINGS: There is no evidence for displaced fracture or dislocation. Mild degenerative joint space narrowing n oted. Small joint effusion suspected. No muscular hematoma. No significant soft tissue swelling seen. IMPRESSION: No acute displaced fracture or dislocation of the left hip.
[2021-08-12] MEDS ORDERED: ACET/COD 300 MG/30 MG STARTER PACK 6 TAB BTL PO STA (16:09)
[2021-08-12 17:10] VITALS: BP 104/70; PULSE 74; TEMP 98.1
== END 2021-08-12 17:09 | disposition home or self-care (01) ==
LOC: EC 14:10
DX: S70.02XA Contusion of left hip, initial encounter (principal); Z87.891 Personal history of nicotine dependence; Z88.5 Allergy status to narcotic agent; Z88.6 Allergy status to analgesic agent; W00.0XXA Fall on same level due to ice and snow, initial encounter
CPT/HCPCS: 99284; 96374; 96375; 96376; 73502; 73080; 73700; J2405; J1170

== ENCOUNTER 2021-08-27 10:01 | Day surgery (SDC) | payer MEDICARE, OTHER ==
[2021-08-23 09:41] VITALS: BMI 18.7
[~2021-08-27 10:01] MED LIST: LACTATED RINGERS 1,000 ML IV SCH; LIDOCAINE 1% (10MG/ML) FOR IV START INTRADERMA PRN
[2021-08-27 10:20] VITALS: TEMP 98.6
[2021-08-27] MEDS ORDERED: ONDANSETRON 4 MG/2 ML VIAL ONE (10:26)
[2021-08-27] MEDS ORDERED: LIDOCAINE 1% (10MG/ML) FOR IV START INTRADERMA ONE (10:28)
[2021-08-27] MEDS ORDERED: PROPOFOL 10 MG/ML 20 ML VIAL IV ONE (10:29)
--- NOTE | 2021-08-27 10:51 | P.PCN ---
Date of Procedure: 08/27/21 Procedure(s) Performed: Brief history: Patient is a pleasant 60-year-old white female with prior history of bariatric surgery 10 years ago scheduled for an elective upper endoscopy as well as colonoscopy as a part of evaluation of I deficiency anemia. She denies any GI symptoms. Procedure performed: Esophagogastroduodenoscopy with biopsy Colonoscopy Preoperative diagnosis: Iron deficiency anemia Anesthesia: [facility] [place] Procedure: After informed consent was obtained from the patient was brought into the endoscopy unit and IV sedation was administered by anesthesia under continuous monitoring. Initially upper endoscopy was done. The Olympus GF 160 video endoscope was inserted inserted into the mouth and esophagus intubated without any difficulty and was gradually advanced into the stomach and duodenum and carefully examined. The bulb and second part of the duodenum appeared normal. Biopsies were done from the duodenum to rule out celiac disease. The scope was then withdrawn into the stomach adequately insufflated with air and upon careful examination the antrum had minimal gastritis and biopsies were done from this area. There was evidence of previous gastric pediatric surgery noted with a few john noted in the distal body the stomach. The mucosa of the cardia and fundus appeared normal . The scope was then withdrawn into the esophagus. The GE junction was located at 35 cm to the incisors. It appeared regular with no erythema erosions or ulcerations. Rest of the esophagus appeared normal. Patient tolerated the procedure well. At this time the patient continued to remain sedation. Initial digital rectal examination was normal. Olympus CF 160 video colonoscope was then inserted into the rectum and gradually advanced to the cecum without any difficulty. Careful examination was performed as the scope was gradually being withdrawn. The prep was poor and several areas of the colon. The cecum, ascending colon, transverse colon, descending colon, sigmoid colon and rectum appeared normal. Retroflexion was performed in the rectum and no lesions were noted. Patient tolerated the procedure well. Impression: 1. Upper endoscopy revealed evidence of previous bariatric surgery and mild antral gastritis 2. Colonoscopy was within normal limits with no evidence of colitis or colorectal neoplasia Recommendations: Findings of this examination were discussed with the patient as well as her family. She was advised to follow with the biopsy results. Continue with iron supplements. Monitor CBC periodically. Repeat colonoscopy in 10 years.
[2021-08-27 11:01] VITALS: RESP 16
[2021-08-27 11:09] VITALS: BP 116/53; PULSE 79
== END 2021-08-27 11:31 | disposition home or self-care (01) ==
LOC: ORWHC2ENDO 10:01
PROVIDERS: ATTEND Internal Medicine Gastroenterology
DX: K29.50 Unspecified chronic gastritis without bleeding (principal); D50.9 Iron deficiency anemia, unspecified; G35 Multiple sclerosis; F41.9 Anxiety disorder, unspecified; F32.A Depression, unspecified; K21.9 Gastro-esophageal reflux disease without esophagitis; Z98.84 Bariatric surgery status; Z90.710 Acquired absence of both cervix and uterus; Z79.899 Other long term (current) drug therapy; Z88.5 Allergy status to narcotic agent
CPT/HCPCS: 81025; 88305; 45378; 43239; J2704

== ENCOUNTER → 2021-11-12 | Outpatient (CLI) | payer MEDICARE, OTHER ==
--- NOTE | 2021-11-12 22:26 | BD ---
EXAMINATION TYPE: Axial Bone Density DATE OF EXAM: 11/12/2021 CLINICAL HISTORY: 61 years year old Female. ICD-10 CODE: M8588 OTHER DISORDER OF BONE DENSITY Height: 5 FT 5 1/2 IN Weight: 113 FRAX RISK QUESTIONS: Alcohol (3 or more units per day): NO Family History (Parent hip fracture): NO Glucocorticoids (More than 3mos): NO (Ex: prednisone, prednisolone, methylprednisolone, dexamethasone, and hydrocortisone). History of Fracture in Adulthood: NO Secondary Osteoporosis: 1. Type 1 Diabetes: NO 2. Hyperthyroidism: NO 3. Menopause before 45: YES 4. Malnutrition: NO 5. Chronic liver disease: NO Rheumatoid Arthritis: NO Current Tobacco Use: NO RISK FACTORS HISTORY OF: Surgery to Spine/Hip(right/left)/Wrist (right/left): NO Family History of Osteoporosis: YES Active: YES Diet low in dairy products/other sources of calcium: NO Postmenopausal woman: YES Take estrogen and/or progesterone medications: NO Lost more than 2 inches in height since high school: NO Frequent falls: NO Poor Health: GOOD Hyperparathyroidism: NO Adrenal Insufficiency: NO MEDICATIONS: Additional Medications: CYMBALTA. PROZAC,ZYRTEC, CALCITROL ,ZOFRAN,VIT D, PERCOCET,EMPIRA Additional History: PT HAS MS EXAM MEASUREMENTS: Bone mineral densitometry was performed using the [employer] System. Bone mineral density as measured about the Lumbar spine is: ----- L1-L4(G/cm2): 0.919 T Score Values are as follows: ----- L1: -2.9 ----- L2: -3.0 ----- L3: -2.0 ----- L4: -1.3 ----- L1-L4: -2.2 Bone mineral density has: DECREASED -9.8 % since study of: 2014 Bone mineral density about the R hip (g/cm2): 0.829 Bone mineral density about the L hip (g/cm2): 0.858 T Score values are as follows: -----R Neck: -1.5 -----L Neck: -1.3 -----R Total: -2.0 -----L Total: -1.5 Bone mineral density has: DECREASED -10.9 % since study of: 2015 FRAX%s: The graph provided illustrates a 6.8 % chance for a major osteoporotic fx and a 0.7 % chance for the hips probability for fx in 10 years time. IMPRESSION: Osteopenia (T Score between -2.5 and -1). Note that measurements are approaching osteoporosis in the lumbar spine. There is slightly increased risk of fracture and the patient may be considered for treatment. Re-Screen 2-5 years. NOTE: T-SCORE=SD OF THE YOUNG ADULT MEAN.
--- NOTE | 2021-11-13 11:42 | P.PN ---
Progress Note - Text Progress Note Date: 11/13/21 OUTPATIENT FOLLOW-UP NOTE TEST(S)/RESULTS: Bone density test done on 11/12/2021 shows osteopenia with decreases in the measurements from the 2015 bone density test. METHOD OF NOTIFICATION: The patient was notified by phone. PATIENT COMMENTS: She takes vitamin D 50,000 units per week as well as a daily form of vitamin D. DIAGNOSIS: Osteopenia, close to osteoporosis. DISCUSSION: She previously took Fosamax for 4 years up until approximately 2019. I have stressed the importance of getting adequate calcium, vitamin D and regular exercise. We have reviewed how much calcium might like her to shoot for as well as the importance of trying to get as much through her diet is possible and the possible need for calcium supplementation if she does not get enough through her diet. PLAN: Repeat bone density test in 2-3 years.
--- NOTE | 2021-11-14 08:50 | MM ---
Reason for exam: screening (asymptomatic). Last mammogram was performed 1 year and 7 months ago. History: Patient is postmenopausal. Family history of breast cancer in paternal grandmother. Physical Findings: A clinical breast exam by your physician is recommended on an annual basis and results should be correlated with mammographic findings. MG 3D Screening Mammo W/Cad Bilateral CC and MLO view(s) were taken. Prior study comparison: April 18, 2020, bilateral MG screening mammo w CAD. April 12, 2019, bilateral MG screening mammo w CAD. The breast tissue is heterogeneously dense. This may lower the sensitivity of mammography. Benign appearing bilateral calcifications. No significant changes when compared with prior studies. ASSESSMENT: Benign, BI-RAD 2 RECOMMENDATION: Routine screening mammogram of both breasts in 1 year.
== END | disposition home or self-care (01) ==
LOC: RADMAMWWP 09:34
PROVIDERS: ATTEND Obstetrics & Gynecology
DX: Z12.31 Encounter for screening mammogram for malignant neoplasm of breast (principal); M85.88 Other specified disorders of bone density and structure, other site
CPT/HCPCS: 77063; 77067; 77080